=== PATIENT | female | born 1995 | race Two or more races ===

== ENCOUNTER 2025-02-05 18:46 | Emergency (ER) | payer BC, OTHER ==
[~2025-02-05] VITALS: Ht 162.6 cm; Wt 70.6 kg
[2025-02-05 19:54] VITALS: BP 123/68; PULSE 95; RESP 16; TEMP 98.9; O2SAT 98
[2025-02-05] MEDS ORDERED: ACET500T58 PO (19:58)
[2025-02-05] MEDS ORDERED: AMOX875T4 PO (19:58)
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
== END 2025-02-05 20:12 | disposition home or self-care (01) ==
LOC: ER 18:46
DX: O9A.212 Injury, poisoning and certain other consequences of external causes complicating pregnancy, second trimester (principal); S00.33XA Contusion of nose, initial encounter; Z79.899 Other long term (current) drug therapy; Z3A.23 23 weeks gestation of pregnancy; Y04.8XXA Assault by other bodily force, initial encounter; Y93.89 Activity, other specified; Y92.89 Other specified places as the place of occurrence of the external cause; Y99.8 Other external cause status

== ENCOUNTER 2025-04-09 17:03 | Observation (INO) | payer BC ==
[~2025-04-09] VITALS: Ht 162.6 cm; Wt 67.1 kg
[~2025-04-09 17:03] MED LIST: ACET500T58 PO; AMOX875T4 PO
[2025-04-09 17:58] LABS: Urine Bacteria FEW /hpf (None Seen); Urine Blood Negative /uL (Negative); Urine Budding Yeast OCCASIONAL /hpf (None Seen); Urine Clarity Clear (Clear); Urine Color Colorless (Yellow); Urine Protein, UAD Negative (Negative); Urine Specific Gravity 1.004 (1.001-1.035); Urine Squamous Epithelial Cell FEW /hpf (<5); Urine Urobilinogen Normal (Negative); Urine WBC < 1 /HPF (0-5); Urine pH 5.5 (5.0-9.0)
[2025-04-09 18:30] LABS: Vaginal Trichomonas Not Present
[2025-04-09 18:32] LABS: Vaginal Bacteria Many; Vaginal Clue Cells None Seen; Vaginal Epithelial Cells Moderate
--- NOTE | 2025-04-09 18:52 | DVHDS2 ---
Physician Discharge Progress N Final Diagnosis: ruled out vaginitis Secondary Diagnosis: Category I EFM Operations or Procedures: Operations or Procedures S: 29yo IUP@32+wks presents to OB triage with c/o vaginal itching and yellow/green vaginal discharge since Monday04/04/25. [facility]. PNC with Dr. Sorto, uncomplicated thus far. She was treated for chlamydia early in the and TOÑA was negative, Partner was also treated. Pt also c/o having 2 mild uterine cramps an hour that is all in her lower abdomen above the pelvis. Denies vaginal pressure. Denies UCs/LOF/VB/BLANCO/vision changes/RUQ pain. Endorses +FM. Denies UTI s/sx. O: VSS EFM: FHR baseline 120s, moderate variability, +accels, -decels TOCO: no UCs noted SSE: cervix appears closed Urine C+S ordered, results pending Laboratory Tests Test 04/09/25 17:46 Range/Units Urine Color Colorless Yellow Urine Clarity Clear Clear Urine pH 5.5 5.0-9.0 Urine Specific Pelican 1.004 1.001-1.035 Urine Protein Negative Negative Urine Ketones Negative Negative Urine Blood Negative Negative /uL Urine Nitrite Negative Negative Urine Bilirubin Negative Negative Urine Urobilinogen Normal Negative mg/dL Urine Leukocyte Esterase 3+ Negative /uL Urine RBC <1 0 - 4 /hpf Urine Microscopic WBC < 1 0-5 /HPF Urine Squamous Epithelial Cells Few <5 /hpf Urine Bacteria Few H None Seen /hpf Urine Yeast (Budding) Occasional None Seen /hpf Urine Glucose Normal Normal mg/dL Vaginal WBC (Wet Prep) Many Vaginal RBC (Wet Prep) Rare Vaginal Epithelial Cells (Wet Prep) Moderate Vaginal Bacteria (Wet Prep) Many Vaginal Trichomonas (Wet Prep) Not present Vaginal Yeast (Wet Prep) None seen Vaginal Clue Cells (Wet Prep) None seen Chlamydia trachomatis (DIALLO) Pending Neisseria gonorrhoeae (DIALLO) Pending A: 29yo IUP@32+wks ruled out vaginitis Category I EFM P: D/C home FKC/PTL precautions reviewed Pt instructed to f/u on urine GC/CT and urine culture results with Dr. Sorto on monday04/11/[address] Sorto consulted, agrees with POC. Condition on Discharge: Stable Disposition: Home Discharge Instructions: Diet: Regular Activity: No Restrictions, As Tolerated Medications: see med list Follow Up Care: Specialist: f/u with Dr. Sorto on monday04/11/25 in office Discharge Statement: "Patient was advised to return to the ER or call 911 if any headaches, dizziness, shortness of breath, chest pain, abdominal pain, bleeding, fevers, or worsening of medical condition. Patient was counseled about treatment plan, medications, possible side effects, patientverbalized understanding. All questions were answered to the best of my ability. This discharge took greater then 30 minutes in planning, reviewing documentation, counseling the patient, and discussing with other team members." Visit Coding OBGYN Date of Service: Apr 09, 2025 Billing Provider: SAMMI BOLIVAR CNM LENS MATCHER Common Visit Codes: [id number] OBS CARE (MOD) LENS MATCHER Procedure Codes: 26188-27- NON-STRESS TEST SAMMI BOLIVAR CNM Apr 09, 2025 18:52
[2025-04-11 05:08] LABS: Chlamydia Trachomatis, NAA Negative (Negative); Neisseria gonorrhoeae, NAA Negative (Negative)
== END 2025-04-09 18:51 | disposition home or self-care (01) ==
LOC: LDRP 17:03
PROVIDERS: ADMIT Obstetrics & Gynecology; ATTEND Obstetrics & Gynecology
DX: O26.893 Other specified pregnancy related conditions, third trimester (principal); N89.8 Other specified noninflammatory disorders of vagina; L29.2 Pruritus vulvae; Z79.899 Other long term (current) drug therapy; Z3A.32 32 weeks gestation of pregnancy
CPT/HCPCS: 59025; 81001; 81002; 87086; 87210; 87491; 87591; 94760; G0378

== ENCOUNTER 2025-05-06 06:57 | Observation (INO) | payer BC ==
[2025-05-06 08:02] LABS: Vaginal Bacteria Rare; Vaginal Clue Cells None Seen; Vaginal Epithelial Cells Rare; Vaginal Trichomonas Not Present
[2025-05-06 08:12] LABS: Fern Testing Negative
--- NOTE | 2025-05-06 11:17 | DVHDS2 ---
Physician Discharge Progress N Final Diagnosis: false labor Operations or Procedures: Operations or Procedures S: 29yo IUP@36.2wks presents to OB triage with c/o of UCs and possible LOF. +FM, denies VB/preE s/sx. PNC with [facility], uncomplicated. O: VSS NST reactive SVE by RN: 60/-2, unchanged after 1 hour of walking SSE by RN: negative pooling and nitrazine Laboratory Tests Test 05/06/25 07:30 Range/Units Amniotic Fluid Ferning Test Negative Vaginal WBC (Wet Prep) Rare Vaginal RBC (Wet Prep) None seen Vaginal Epithelial Cells (Wet Prep) Rare Vaginal Bacteria (Wet Prep) Rare Vaginal Trichomonas (Wet Prep) Not present Vaginal Yeast (Wet Prep) None seen Vaginal Clue Cells (Wet Prep) None seen A: 29yo IUP@36.2wks False Labor P: D/C home FKC/PreE/PTL labor precautions reviewed Dr. Sorto consulted, agrees with POC. Condition on Discharge: Stable Disposition: Home Discharge Instructions: Diet: Regular Activity: No Restrictions, As Tolerated Medications: see med list Follow Up Care: Specialist: f/u with Dr. Sorto as scheduled in office Discharge Statement: "Patient was advised to return to the ER or call 911 if any headaches, dizziness, shortness of breath, chest pain, abdominal pain, bleeding, fevers, or worsening of medical condition. Patient was counseled about treatment plan, medications, possible side effects, patientverbalized understanding. All questions were answered to the best of my ability. This discharge took greater then 30 minutes in planning, reviewing documentation, counseling the patient, and discussing with other team members." Visit Coding OBGYN Date of Service: May 06, 2025 Billing Provider: SAMMI BOLIVAR CNM PICKER BOX OPERATOR Common Visit Codes: 41370-GUTMMIN OBS CARE (HIGH) PICKER BOX OPERATOR Procedure Codes: 51763-17- NON-STRESS TEST SAMMI BOLIVAR CNM May 06, 2025 11:17
[2025-05-07] MEDS ORDERED: PREN-96 PO ×2 (23:18)
[2025-05-07] MEDS ORDERED: DOCU-265 PO ×2 (23:18)
[2025-05-07] MEDS ORDERED: IBU600T PO ×2 (23:18)
[2025-05-07] MEDS ORDERED: FERR30CA PO ×2 (23:18)
== END 2025-05-06 09:17 | disposition home or self-care (01) ==
LOC: LDRP 06:57
PROVIDERS: ADMIT Obstetrics & Gynecology; ATTEND Obstetrics & Gynecology
DX: O47.9 False labor, unspecified (principal); Z3A.36 36 weeks gestation of pregnancy; Z98.890 Other specified postprocedural states; Z79.899 Other long term (current) drug therapy
CPT/HCPCS: 59025; 81002; 87210; 94760; G0378; Q0114

== ENCOUNTER 2025-05-06 23:39 | Inpatient (IN) | payer BC ==
[~2025-05-06] VITALS: Ht 162.6 cm; Wt 67.1 kg
--- NOTE | 2025-05-06 23:46 | DVHHP2 ---
OB CC & HPI Date Date of Admission: May 06, 2025 Patient Identification: : 7 Para: 4 EDC: Jun 01, 2025 EGA: 36.2 Chief Complaints: Reason for admission: active labor History of Present Complaints 29yo IUP@36.2wks presents in labor. Pt reports SROM at 2300 clear fluid and UCs since the morning. Denies VB/BLANCO/vision changes/RUQ pain. Endorses +FM. PNC: Routine PNC at [facility], adequate visits, PNC complicated by +chlamydia on and 03/14/25, treated both times, TOÑA negative on 04/09/25. GTT wnl. GBS not done. OB hx: x4, uncomplicated SAB x2 Past Medical History Cardiac: No pertinent Hx Pulmonary: No pertinent Hx Central Nervous System: No pertinent Hx GI: No pertinent Hx Hemotology/Oncology: No pertinent Hx Hepatobiliary: No pertinent Hx Psychiatric: No pertinent Hx Musculoskeletal: No pertinent Hx Rheumotologic: No pertinent Hx Infectious Disease: No peritnent Hx ENT: No pertinent Hx Renal/: No pertinent Hx Endocrine: No pertinent Hx Dermatology: No pertinent Hx Past Surgical History: No pertinent Hx OB History OB History Care: Good Care Ultrasounds: Normal mid trimester US Obstetrical Complications: None Medical Complications: None Allergies: Coded Allergies: No Known Drug Allergy (Verified Allergy, Unknown, 02/05/25) Home Meds No Active Prescriptions or Reported Meds Home Meds PNV Family & Social History Family/Social History Past Family/Social History: denies Gonorrhea negative HIV negative Blood Type: O+ RPR/VDRL: Negative GBS Status: Unknown HBsAG: Negative Review of Systems Constitutional: No symptom reported Ears, Nose, & Throat: No symptom reported Eyes: No symptom reported Pulmonary/Respiratory: No symptom reported Cardiovascular: No symptom reported Gastrointestinal: No symptom reported Genitourinary: No symptom reported Musculoskeletal: No symptom reported Skin: No symptom reported Psychiatric: No symptom reported Endocrine: No symptom reported Hemotologic/Lymphatic: No symptom reported OB Admission Exam Physical Exam Vitals: VSS, see CPN HEENT: TMs Normal, Fontanelles Normal, Nasal Mucosa Normal, Eyes non-injected, Oropharynx Normal, PERRLA, Moist Membranes, EOMI Heart: Rhythm Normal Lungs: Clear Abdomen: Gravid Extremities: Normal Reflexes: Normal Pelvic Exam: SVE by RN: 7/80/-2 EFW by elli 6lbs Membranes: Ruptured Amniotic Fluid: Clear Heart Rate: 120's Accelerations: Accelerations Present Decelerations: Variable Decelerations (x1) Service Bar Cashier Variability: Average (6-25) Contractions on Admission: < 5 Minutes Apart Intensity: Moderate OB Plan Plan Admitting Diagnosis: active labor Plan: Expectant Management Other Plan: A: 29yo IUP@36.2wks Active labor Category II EFM SROM, clear GBS not done P: Admit to L&D Informed consent obtained Expectant management for now due to frequent UCs Start IV PCN for GBS prophylaxis monitoring per order Routine labs ordered Pain mgmt PRN Frequent position changes in and out of bed encouraged Limit SVE unless necessary Intrauterine resuscitation PRN Anticipate ABDIRAHMAN is co-managing care with Dr. Sorto. Visit Coding OBGYN Date of Service: May 06, 2025 Billing Provider: SAMMI BOLIVAR CNM MANAGER DRILLING Common Visit Codes: [id number] INP/OBS CARE (HIGH) MANAGER DRILLING Procedure Codes: 54005-52- NON-STRESS TEST SAMMI BOLIVAR CNM May 06, 2025 23:46
[2025-05-07] MEDS: LACTATED RINGER'S 1,000 ML IV SCH
[2025-05-07] MEDS: PENICILLIN G POT 5MIL/D5 50ML 50 ML IV ONE ×2 (00:11→00:36)
[2025-05-07 01:16] LABS: Alanine Aminotransferase 12 U/L (7-40); Albumin 3.9 g/dL (3.2-4.8); Anion Gap 9 (5-15); BUN/Creatinine Ratio 17.4 (10.0-20.0); Calcium 9.4 mg/dL (8.7-10.4); Carbon Dioxide 21 mmol/L (20-31); Chloride 107 mmol/L (98-107); Glucose 83 mg/dL (74-106); Potassium 3.9 mmol/L (3.5-5.1); Sodium 137 mmol/L (136-145); Total Protein 6.4 g/dL (5.7-8.2)
[2025-05-07 01:17] LABS: Bilirubin, Total 0.5 mg/dL (0.2-1.0); INR 0.93 (0.9-1.15); Partial Thromboplastin Time 25.6 SEC (24.5-34.5); Prothrombin Time 9.9 sec (9.3-11.8)
[2025-05-07 01:21] LABS: Alkaline Phosphatase 208 U/L (46-116); Blood Urea Nitrogen 8 mg/dL (9-23)
[2025-05-07 01:25] LABS: Hematocrit 33.9 % (36.0-46.0); Hemoglobin 10.6 g/dL (12.2-16.2); Mean Corpuscular Hemoglobin 25.2 pg (28.0-32.0); Mean Corpuscular Volume 80.4 fL (80.0-100.0); Nucleated Red Blood Cells % 0.1 %
[2025-05-07] MEDS ORDERED: PENICILLIN G POTASSIUM 2,500,000 UNITS in D5W 5% 50 ML IV SCH (04:00)
[2025-05-07] MEDS: KETOROLAC TROMETH 30 MG/ML 1ML VIAL ONE (04:30)
[2025-05-07] MEDS: LACT. RINGERS/OXYTOCIN 20UNITS 500 ML IV ONE ×2 (04:40→05:25)
[2025-05-07] MEDS: KETOROLAC TROMETH 30 MG/ML 1ML VIAL IV STA (04:42)
[2025-05-07] MEDS: DERMOPLAST 60ML BOTTLE TOP PRN (04:43)
[2025-05-07] MEDS: PHISODERM TOP SOLN 240ML BTL TOP PRN (04:43)
[2025-05-07] MEDS: WITCH HAZEL-GLYCERIN PAD TOP PRN (04:44)
[2025-05-07] MEDS: METHYLERGONOVINE MALEATE 0.2 MG/ML AMP IM STA (05:10)
[2025-05-07] MEDS: ceFAZolin 2 GM/D5W50ml 50 ML IV STA (05:12)
[2025-05-07] MEDS: METHYLERGONOVINE MALEATE 0.2 MG/ML AMP IM ONE (05:13)
--- NOTE | 2025-05-07 05:33 | LDN2 ---
Labor and Delivery Note Date 05/07/25 Age 29 7 Para now 5 AB 2 EDC 06/01/25 EGA 36.3wks Diagnosis Active labor then Vaginal Delivery: VTX Vacuum Assisted: No Placenta: Spontaneous Sex: Female Weight 6lbs 11oz Apgars 8/9 Nuchal Cord Transected: No Amniotic Fluid: Clear Anesthesia local Episiotomy: No Extension: No Repaired with bilateral labial lacs 3-0 VICRYL EBL QBL 450ml Labs Blood Bank 05/07/25 00:16: Blood Type O POSITIVE Complications none Conditions stable Health Type Technician Somu Comments/Significant Med Akil At 0412 this 29yo now delivered a viable Female by w/ APGARS 8/9. MALAIKA with loose Nuchal x1 with cord reduced after . placed skin to skin on pts chest. Cord clamped and cut after pulsation ceased. Cord blood sent. Intact 3-vessel cord placenta delivered spontaneously, Renata. Pitocin IV bolus started. Placenta sent to pathology. Patient had local anesthesia and toradol 30mg IVP prior to repair.Cervix/vagina inspected (intact) and bilateral labial lacerations present which were repaired with 3-0 vicryl suture. Fundus firm to massage, moderate lochia noted. Manual sweep done with pts consent, clots cleared from uterus. Ancef 2g IVPB ordered to be given within 1 hour. IM methergine ordered to be given now. Fundus at U, firm, midline, and light lochia. QBL 450ml. VSS. Count correct x2. Patient to care and baby to couplet care, both stable. Visit Coding OBGYN Date of Service: May 07, 2025 Billing Provider: SAMMI BOLIVAR CNM TAX ACCOUNTANT Common Visit Codes: PROCEDURE ONLY TAX ACCOUNTANT Procedure Codes: 62302-UFI DEL INCLUDING SAMMI BOLIVAR CNM May 07, 2025 05:33
[2025-05-07 07:02] LABS: Urine Protein, UAD 1+ (Negative)
[2025-05-07 07:07] LABS: Amphetamine Screen, Urine Neg (NEGATIVE); Barbiturate Scree,Urine Neg (NEGATIVE); Benzodiazephine Screen, Urine Neg (NEGATIVE); Cannabinoid Screen, Urine Neg (NEGATIVE); Cocaine Screen, Urine Neg (NEGATIVE); Opiate Scree,Urine Neg (NEGATIVE); Phencyclidine Screen, Urine Neg (NEGATIVE)
[2025-05-07] MEDS ORDERED: LIDOCAINE 2%HCL (LOCAL ANESTH.) INJ 20ML MDV IJ PRN (07:15)
[2025-05-07] MEDS: IBUPROFEN 600 MG TAB PO PRN (07:30)
[2025-05-07] MEDS: LIDOCAINE 2%HCL (LOCAL ANESTH.) INJ 20ML MDV IJ PRN (07:39)
[2025-05-07] MEDS: PRENATAL VITAMIN TAB PO SCH (11:43)
[2025-05-07] MEDS: ACETAMINOPHEN 325 MG TAB PO PRN (11:43)
[2025-05-07 11:46] VITALS: BP 101/53; PULSE 58; RESP 18; TEMP 98; O2SAT 95
[2025-05-07 15:33] VITALS: TEMP 98.2
[2025-05-07 19:00] VITALS: BP 100/52; PULSE 92; RESP 16; TEMP 97.4
[2025-05-07 19:23] LABS: Hematocrit 32.0 % (36.0-46.0); Hemoglobin 10.4 g/dL (12.2-16.2); Mean Corpuscular Hemoglobin 25.1 pg (28.0-32.0); Mean Corpuscular Volume 77.4 fL (80.0-100.0); Nucleated Red Blood Cells % 0.1 %
[2025-05-07] MEDS: DOCUSATE SOD 100 MG CAP PO PRN (21:56)
[2025-05-07 23:00] VITALS: BP 101/53; PULSE 80; RESP 14; TEMP 97.7
[2025-05-07] MEDS ORDERED: DOCU-265 PO ×2 (23:18)
[2025-05-07] MEDS ORDERED: IBU600T PO ×2 (23:18)
[2025-05-07] MEDS ORDERED: FERR30CA PO ×2 (23:18)
[2025-05-07] MEDS ORDERED: PREN-96 PO ×2 (23:18)
--- NOTE | 2025-05-08 00:06 | DVHDS2 ---
Obstetrics Discharge Summary Obstetrics Discharge Summary Date of Admission: May 06, 2025 Date of Discharge: May 08, 2025 Reason For Admission: Labor Procedures: NST Intrapartum Procedures: Spontaneous vaginal deliv Procedures: Hct/date: (05/07/25), Hgb/date: (05/07/25) Operative Complicat: Laceration (bilateral labial lacs) Discharge Diagnosis: Delivery Discharge Information: Activity (as tolerated, no heavy lifting and nothing in the vagina for 6 weeks), Diet (Routine), Medications (Rx sent), Instructions (Routine), Discharge to (Home), Accompanied by (partner), Discarge date (05/08/25) Visit Coding OBGYN Date of Service: May 08, 2025 Billing Provider: SAMMI BOLIVAR CNM COPPER PLATE LITHOGRAPHER Common Visit Codes: 99365-FJR/OBS DISCH DAY <30MIN SAMMI BOLIVAR CNM May 08, 2025 00:06
--- NOTE | 2025-05-08 00:06 | DVHPN2 ---
Progress Note Date Seen: May 08, 2025 Subjective S: bleeding is less, eating food without issues, denies lightheaded/dizziness, pain well controlled with oral medications, no concerns with urinating, passing flatus, no BM yet, ambulating well, vital signs Vital Sign Date Time Temp Pulse Resp B/P (MAP) Pulse Ox O2 Delivery O2 Flow Rate FiO2 05/07/25 23:00 97.7 80 14 101/53 (69) 97.7 05/07/25 19:00 Room Air 05/07/25 11:46 95 Total Intake and Output 05/07/25 05/07/25 05/08/25 15:00 23:00 07:00 Output Total 1300 ml Balance -1300 ml medications Current Medications Medications Dose Ordered Sig/Georges Route Start Time Stop Time Status Last Admin Dose Admin Lakisha Mckeon 1 pad PRN PRN TOP 05/07/25 00:00 05/07/25 04:44 1 PAD Sodium Lauryl Sulfate 240 ml PRN PRN TOP 05/07/25 00:00 05/07/25 04:43 240 ML Benzocaine 1 applic PRN PRN TOP 05/07/25 00:00 05/07/25 04:43 1 APPLIC Ibuprofen 600 mg Q6HP PRN PO 05/07/25 10:30 05/07/25 23:22 600 MG Acetaminophen 650 mg Q6HPRN PRN PO 05/07/25 05:45 05/07/25 20:12 650 MG Prenat Multivit/ Davison/Iron/Folic Ac 1 DAILY PO 05/07/25 10:00 05/07/25 11:43 1 Docusate Sodium 200 mg DAILY PRN PO 05/07/25 10:00 05/07/25 21:56 200 MG laboratory and microbiology Laboratory Tests 05/07/25 19:02 05/07/25 00:16 Test 05/07/25 00:16 Range/Units Serum Glucose 83 74-106 mg/dL Objective O: VSS Chest: heart sounds normal and lung sounds clear bilaterally Abd: soft, non-tender, fundus 1-U/firm/midline, active bowel sounds, no rebound or guarding Perineum: sutures intact, edges well approximated, no erythema/edema noted Ext: Non-tender, No edema, 2+ BLE DTRs Lochia: minimal See lab results Problems(with codes): (1) Iron deficiency anemia during (2) Obstetric labial laceration, delivered, current hospitalization (3) delivery Assessment/Plan A: 29yo now PPD#1 s/p Anemia Rh+ P: D/C home today Rx sent to pharmacy precautions and preeclampsia warning signs reviewed F/U with [facility] office in 2 weeks Plan discussed with: Patient Visit Coding OBGYN Date of Service: May 08, 2025 Billing Provider: SAMMI BOLIVAR CNM ZINC CHLORIDE OPERATOR Common Visit Codes: [id number] INP/OBS CARE(MOD) SAMMI BOLIVAR CNM May 08, 2025 00:06
[2025-05-08 03:00] VITALS: BP 100/52; PULSE 78; RESP 16; TEMP 97.8
[2025-05-08 06:48] VITALS: BP 97/55; PULSE 80; RESP 16; TEMP 98.1
[2025-05-08 10:50] VITALS: BP 115/73; PULSE 80; RESP 18; TEMP 97.5; O2SAT 98
[2025-05-08 14:48] VITALS: BP 100/59; PULSE 85; RESP 18; TEMP 98; O2SAT 97
--- NOTE | 2025-05-09 11:59 | ECG ---
[facility] Test Date: 2025-05-07 Test Time: 12:36:08 Pat Name: KAELA ANGEL Department: Room: [facility] A Gender: F Screen Cutter And Trimmer: FREDERIC RAMIREZ : 1995 Requested By: RUPERT SYLVESTER Order Number: [id number] Reading MD: Measurements Intervals [place] Rate: 69 P: 63 SC: 142 QRS: 51 QRSD: 92 T: 33 QT: 386 QTc: 413 Interpretive Statements Normal sinus rhythm Please click the below link to view image of tracing.
== END 2025-05-08 17:00 | disposition home or self-care (01) | DRG 807 ==
LOC: LDRP 23:39
PROVIDERS: ADMIT Obstetrics & Gynecology; ATTEND Obstetrics & Gynecology
PROC: 10E0XZZ Delivery of Products of Conception, External Approach (ICD-10-PCS; principal; 2025-05-07)
PROC: 0HQ9XZZ Repair Perineum Skin, External Approach (ICD-10-PCS; 2025-05-07)
DX: O60.14X0 Preterm labor third trimester with preterm delivery third trimester, not applicable or unspecified (principal); Z37.0 Single live birth; O69.81X0 Labor and delivery complicated by cord around neck, without compression, not applicable or unspecified; O99.02 Anemia complicating childbirth; Z3A.36 36 weeks gestation of pregnancy; O70.0 First degree perineal laceration during delivery
CPT/HCPCS: 36415; 59025; 59409; 80053; 80307; 81001; 85025; 85610; 85730; 86780; 86803; 86850; 86900; 86901; 93005; 94760; 94762; 96360; 96361; 96365; 96366; 96372; 96374; G0378; J1885; J2540; J2590; J7060